=== PATIENT | female | born 1950 | race Caucasian/White ===

== ENCOUNTER 2021-03-24 10:04 | Emergency (ER) | payer MEDICARE, SELFPAY ==
[2021-03-24] VITALS (7 sets, daily range): BP systolic 107–130; BP diastolic 58–93; PULSE 71–85; RESP 15–28; TEMP 36.6; O2SAT 78–100
--- NOTE | ~2021-03-24 | XR_ITS ---
XR chest 1V portable DATE: 03/24/2021 10:45 INDICATION: Cough, shortness of breath TECHNIQUE: Portable upright AP chest on 03/2021 at 1038 hours COMPARISON: 03/24/2018 PA and lateral chest FINDINGS: Normal heart size. There is mild aortic tortuosity. No hilar or mediastinal enlargement. There is mild infiltrate or atelectasis at the lung bases. The lungs are otherwise clear. No pleural effusion or pulmonary congestion or pneumothorax. Diffuse osteopenia. Multiple old healed displaced rib fracture deformities. IMPRESSION: Mild bibasilar infiltrate and/or atelectasis Reviewed, dictated and finalized at location A.
--- NOTE | 2021-03-24 10:31 | ED.NAVMDI ---
HPI - Nausea/Vomiting/Diarrhea General Chief complaint: Upper Respiratory Infection Stated complaint: dry heaves/diarrhea Time Seen by Provider: 03/24/21 10:22 History of Present Illness HPI Narrative: Nausea, and diarrhea for a few days. Not able to tolerate solids. Keeping down fluids. Associated with Cough and mild TRIPATHI. Positive home COVID-19 test. Unvaccinated. Related Data Home Medications Medication Instructions Recorded Confirmed alprazolam 0.5 mg tablet 0.5 mg PO DAILY 10/22/19 10/25/19 ascorbate calcium (vitamin C) 500 500 mg PO DAILY 10/22/19 10/25/19 mg tablet cholecalciferol (vitamin D3) 100 4,000 unit PO DAILY 10/22/19 10/25/19 mcg (4,000 unit) capsule escitalopram oxalate 20 mg tablet 10 mg PO DAILY 10/22/19 10/25/19 fexofenadine 60 mg capsule 60 mg PO Q12H 10/22/19 10/25/19 fluticasone propionate 50 1 spray NASAL DAILY 10/22/19 10/25/19 mcg/actuation nasal spray,suspension losartan 50 mg tablet 50 mg PO DAILY 10/22/19 10/25/19 mecobalamin (vitamin B12) 1,000 1,000 mcg PO DAILY 10/22/19 10/25/19 mcg chewable tablet rosuvastatin 10 mg tablet 10 mg PO DAILY 10/22/19 10/25/19 Allergies Allergy/AdvReac Type Severity Reaction Status Date / Time codeine Allergy Mild SHAKINESS Verified 10/25/19 07:55 fluoxetine AdvReac Mild laryngitis Verified 10/25/19 07:55 mirtazapine AdvReac Mild Unknown Verified 10/25/19 07:55 olanzapine AdvReac Mild Unknown Verified 10/25/19 07:55 Review of Systems Review of Systems: All systems reviewed & are unremarkable except as noted in HPI and below Constitutional: Constitutional: Denies fever(s) Eyes: Eyes: Reports no additional eye complaints Cardiovascular: Cardiovascular: Denies chest pain Respiratory: Respiratory: Reports chest congestion, Reports cough and Reports dyspnea Gastrointestinal: Gastrointestinal: Denies abdominal pain, Reports diarrhea and Reports nausea Genitourinary: Genitourinary: Denies hematuria, Denies nocturia and Denies dysuria Musculoskeletal: Musculoskeletal: Reports myalgias Neurologic: Denies confusion, Denies numbness and Denies weakness PMFSH Past Medical History Medical History (Updated 03/24/21 @ 12:21 by Zane Ortega MD) Breast cancer Depression GERD (gastroesophageal reflux disease) High cholesterol HTN (hypertension) Panic attack Surgical History Surgical History H/O mastectomy H/O: hysterectomy History of [place] fundoplication History of sinus surgery TMJ (dislocation of temporomandibular joint) Family History Family History Father Hypertension Heart disease Mother Hypertension Sibling Asthma Sibling Breast cancer Unknown Diabetes mellitus Breast cancer Social History Social History Smoking status: Never smoker Alcohol intake: never Substance use: never Gender identity (if verbalized by the patient): Female Exam Const: General: no acute distress and alert Orientation/consciousness: patient oriented x3 HENMT: Head: normal to inspection Mouth: Yes dry mucous membranes Neck: Neck: normal visual inspection and no lymphadenopathy Chest: Chest palpation & inspection: no tenderness Resp: Effort & Inspection: normal respiratory effort Auscultation: clear to auscultation bilaterally, no rales, no rhonchi and no wheezes Cardio: Jugular venous distension: no JVD Rate: regular rate Rhythm: regular rhythm Heart sounds: no murmurs GI: Inspection: non-distended GI Palp: Yes Soft to palpation and No Tenderness to palpation present (GI) Auscultation: normal bowel sounds Skin: General skin exam: normal color Neuro: General: patient oriented x3 and moves all extremities Speech: normal speech Gait exam (Neuro): Normal gait present Extrem: General: normal to inspection and no edema Psych: Appearance: wel
[2021-03-24] MEDS: SODIUM CHLORIDE 0.9% IV 500 ML 999 ML IV CONT (10:42)
[2021-03-24] MEDS: ONDANSETRON INJ 4 MG/2 ML VIAL IV PUSH (10:43)
[2021-03-24 11:04] LABS: Alanine Aminotransferase 31 U/L (4-35); Albumin Level 4.1 g/dL (3.5-5.1); Alkaline Phosphatase 57 U/L (38-126); Anion Gap 10 mmol/L (8-16); Aspartate Amino Transferase 69 U/L (14-36); Bilirubin,Total 0.5 mg/dL (0.2-1.3); Blood Urea Nitrogen 10 mg/dL (7-17); Calcium 8.8 mg/dL (8.4-10.2); Carbon Dioxide 25 mmol/L (22-30); Chloride 92 mmol/L (98-107); Estimated CRCL calculation 61 ml/min; Estimated Glomerular Filt Rate > 60; Glucose 93 mg/dL (65-110); Lipase 388 U/L (23-300); Potassium 3.7 mmol/L (3.4-5.0); Sodium 127 mmol/L (137-145)
[2021-03-24 11:22] LABS: Hematocrit 41.9 % (37.0-47.0); Hemoglobin 13.7 g/dL (12.0-15.0); Immature Granulocyte Absolute 0.02 K/mm3 (0.00-0.031); Immature Granulocyte Percent A 0.6 % (0-0.5); Lymphocytes Absolute Auto 0.67 K/mm3 (0.9-3.2); Lymphocytes Percent Auto 20.6 % (18.3-44.2); Mean Corpuscular HGB Conc 32.7 g/dl (32-36); Mean Corpuscular Hemoglobin 30.2 pg (26-34); Mean Corpuscular Volume 92.3 fl (80-100); Mean Platelet Volume 9.6 fl (7.4-10.4); Monocytes Absolute Auto 0.3 K/mm3 (0.1-0.6); Monocytes Percent Auto 8.3 % (2.6-8.5); Neutrophils Absolute Auto 2.3 K/mm3 (1.3-6.7); Neutrophils Percent Auto 70.5 % (45.5-73.1); Platelet Count Result 172 k/mm3 (150-375); Red Blood Count 4.54 M/mm3 (4.2-5.4); Red Cell Distribution Width 13.2 % (11.5-14.5); White Blood Count 3.3 K/mm3 (4.5-10.0)
[2021-03-24 11:55] LABS: Add Urine Microscopic? YES; Appearance Urine Clear (Clear); Bacteria Urine Trace /hpf; Bilirubin Urine Negative (Negative); Blood Urine 2+ (Negative); Color Urine Yellow (Yellow); Glucose Urine UA Negative (Negative); Ketones Urine 2+ mg/dL (Negative); Leukocyte Esterase Ur Negative LEU/UL (Negative); Mucus Urine Rare /lpf; Nitrate Urine Negative (Negative); Protein Urine 3+ mg/dL (Negative); Specific Grav Ur 1.014 (1.001-1.035); Urobilinogen Urine Negative mg/dL (<2.0)
== END 2021-03-24 12:49 | disposition home or self-care (01) ==
PROVIDERS: Emergency Provider Emergency Medicine; PCP Family Medicine
DX: U07.1 COVID-19 (principal); E87.1 Hypo-osmolality and hyponatremia; E86.0 Dehydration; E78.00 Pure hypercholesterolemia, unspecified; I10 Essential (primary) hypertension; K21.9 Gastro-esophageal reflux disease without esophagitis; Z85.3 Personal history of malignant neoplasm of breast; F32.9 Major depressive disorder, single episode, unspecified; Z90.10 Acquired absence of unspecified breast and nipple; R91.8 Other nonspecific abnormal finding of lung field
CPT/HCPCS: 36415; 71045; 80053; 81001; 83690; 85025; 96361; 96374; 99284; J2405; J7040

== ENCOUNTER 2021-03-27 12:11 | Emergency (ER) | payer MEDICARE, SELFPAY ==
[2021-03-27 12:39] VITALS: BP 116/61; PULSE 79; RESP 18; TEMP 35.9; O2SAT 94
[2021-03-27 12:56] LABS: Basophils Percent Auto 0.2 % (0.2-1.2); Eosinophils Percent Auto 0.2 % (0-4.4); Hematocrit 42.6 % (37.0-47.0); Hemoglobin 14.2 g/dL (12.0-15.0); Immature Granulocyte Absolute 0.06 K/mm3 (0.00-0.031); Immature Granulocyte Percent A 0.9 % (0-0.5); Lymphocytes Absolute Auto 0.72 K/mm3 (0.9-3.2); Lymphocytes Percent Auto 11.1 % (18.3-44.2); Mean Corpuscular HGB Conc 33.3 g/dl (32-36); Mean Corpuscular Hemoglobin 30.2 pg (26-34); Mean Corpuscular Volume 90.6 fl (80-100); Mean Platelet Volume 8.8 fl (7.4-10.4); Monocytes Absolute Auto 0.3 K/mm3 (0.1-0.6); Neutrophils Absolute Auto 5.4 K/mm3 (1.3-6.7); Neutrophils Percent Auto 83.6 % (45.5-73.1); Platelet Count Result 247 k/mm3 (150-375); Red Cell Distribution Width 13.1 % (11.5-14.5); White Blood Count 6.5 K/mm3 (4.5-10.0)
[2021-03-27 13:14] LABS: Alanine Aminotransferase 39 U/L (4-35); Albumin Level 3.9 g/dL (3.5-5.1); Alkaline Phosphatase 64 U/L (38-126); Anion Gap 7 mmol/L (8-16); Aspartate Amino Transferase 66 U/L (14-36); Bilirubin,Total 0.5 mg/dL (0.2-1.3); Blood Urea Nitrogen 13 mg/dL (7-17); Calcium 9.1 mg/dL (8.4-10.2); Carbon Dioxide 28 mmol/L (22-30); Chloride 96 mmol/L (98-107); Estimated CRCL calculation 55 ml/min; Estimated Glomerular Filt Rate > 60; Glucose 106 mg/dL (65-110); Lipase 323 U/L (23-300); Potassium 4.1 mmol/L (3.4-5.0); Sodium 131 mmol/L (137-145)
--- NOTE | 2021-03-27 13:14 | PC.NURSE ---
Patient came up to the ED Intake desk and states I'm just going to leave. Patient walked out of the ED at this time.
== END 2021-03-27 13:14 | disposition left against medical advice (07) ==
LOC: ANHED 13:24
PROVIDERS: Emergency Provider Emergency Medicine
DX: U07.1 COVID-19 (principal)
CPT/HCPCS: 36415; 80053; 83690; 85025; 99199